=== PATIENT | female | born 1995 | race African-American/Black ===

== ENCOUNTER 2017-02-23 05:45 | Emergency (ER) | payer MEDICAID ==
[~2017-02-23] VITALS: Ht 175.3 cm; Wt 91.0 kg
[~2017-02-23 05:45] MED LIST: ALBUTEROL; NEXPLANON
[2017-02-23] MEDS ORDERED: SODIUM CHLORIDE 0.9% 1,000 ML IV ONE (09:00)
[2017-02-23 09:50] LABS: HEMATOCRIT. 36.9 % (36.0-48.0); HEMOGLOBIN. 12.2 g/dL (12.0-16.0); MEAN CORPUSCULAR HEMOGLOBIN 27.8 pg (28.0-32.0); MEAN CORPUSCULAR VOLUME 84.5 fL (81.0-99.0); MEAN PLATELET VOLUME 9.3 fl (7.4-10.4); PLATELET 205 x1000/uL (130-400); RED BLOOD CELL COUNT 4.37 mill/uL (4.2-5.4); RED CELL DISTRIBUTION WIDTH 14.6 % (11.6-14.6)
[2017-02-23 09:55] LABS: CHLORIDE 106 mEq/L (98-107)
[2017-02-23 09:57] LABS: INR 1.1; PROTHROMBIN TIME 11.4 sec
[2017-02-23 10:03] LABS: HCG SCREEN NEGATIVE
[2017-02-23 10:05] LABS: CARBON DIOXIDE 27 mEq/L (21-32)
[2017-02-23 10:11] LABS: CLARITY URINE CLOUDY (CLEAR); COLOR URINE YELLOW (YELLOW); GLUCOSE URINE NEGATIVE (NEGATIVE); KETONES URINE NEGATIVE (NEGATIVE); LEUKOCYTE ESTERASE URINE NEGATIVE (NEGATIVE); NITRITE URINE NEGATIVE (NEGATIVE); OCCULT BLOOD URINE NEGATIVE (NEGATIVE); PH URINE 7.5 (4.5-8.0); PROTEIN URINE NEGATIVE (NEGATIVE); SPECIFIC GRAVITY URINE 1.027 (1.005-1.030)
[2017-02-23 10:17] LABS: PLATELET ESTIMATE NORMAL
[2017-02-23 10:54] LABS: *AMPHETAMINES SCREEN URINE NEGATIVE (NEGATIVE); *BARBITURATES SCREEN URINE NEGATIVE (NEGATIVE); *BENZODIAZEPINES SCREEN URINE NEGATIVE (NEGATIVE); *COCAINE SCREEN URINE NEGATIVE (NEGATIVE); METHADONE URINE SCREEN NEGATIVE (NEGATIVE); OPIATES URINE SCREEN NEGATIVE (NEGATIVE); PHENCYCLIDINE URINE SCREEN NEGATIVE (NEGATIVE)
[2017-02-23 10:59] LABS: CANNABINOID URINE SCREEN PRESUMTIVE POSITIVE (NEGATIVE)
[2017-02-23] MEDS ORDERED: KETOROLAC 30MG/ML VIAL IV ONE (11:00)
[2017-02-23 11:04] VITALS: BP 121/62
== END 2017-02-23 11:37 | disposition home or self-care (01) ==
LOC: ER 05:53
DX: R10.30 Lower abdominal pain, unspecified (principal); R11.2 Nausea with vomiting, unspecified; J45.909 Unspecified asthma, uncomplicated; R30.0 Dysuria; Z20.89 Contact with and (suspected) exposure to other communicable diseases; Z88.0 Allergy status to penicillin
CPT/HCPCS: 36415; 80053; 80305; 81001; 83690; 84703; 85025; 85610; 87070; 87430; 96361; 96374; 99285; J1885; J7030; Z7610

== ENCOUNTER 2017-06-30 08:05 | Emergency (ER) | payer MEDICAID ==
[~2017-06-30] VITALS: Ht 177.8 cm; Wt 95.0 kg
[2017-06-30] MEDS ORDERED: ACETAMINOPHEN 325MG TABLET PO STA (08:45)
[2017-06-30] MEDS ORDERED: ONDANSETRON 4MG ODT PO STA (08:45)
[2017-06-30 09:17] LABS: BASOPHILS % 0.5 % (0.0-2.0); HEMATOCRIT. 40.6 % (36.0-48.0); HEMOGLOBIN. 13.5 g/dL (12.0-16.0); LYMPHOCYTES % 28.2 % (20.0-50.0); MEAN CORPUSCULAR HEMOGLOBIN 28.2 pg (28.0-32.0); MEAN CORPUSCULAR VOLUME 84.8 fL (81.0-99.0); MEAN PLATELET VOLUME 10.1 fl (7.4-10.4); MONOCYTES % 9.9 % (2.0-8.0); NEUTROPHILS % 59.4 % (40.0-76.0); PLATELET 214 x1000/uL (130-400); RED BLOOD CELL COUNT 4.79 mill/uL (4.2-5.4); RED CELL DISTRIBUTION WIDTH 13.7 % (11.6-14.6)
[2017-06-30 09:21] LABS: CHLORIDE 104 mEq/L (98-107); INR 1.1; PROTHROMBIN TIME 11.2 sec (9.4-11.6)
[2017-06-30 09:25] LABS: CARBON DIOXIDE 26 mEq/L (21-32)
[2017-06-30 10:54] LABS: CLARITY URINE CLEAR (CLEAR); COLOR URINE YELLOW (YELLOW); GLUCOSE URINE NEGATIVE (NEGATIVE); KETONES URINE TRACE (NEGATIVE); LEUKOCYTE ESTERASE URINE NEGATIVE (NEGATIVE); NITRITE URINE NEGATIVE (NEGATIVE); OCCULT BLOOD URINE NEGATIVE (NEGATIVE); PH URINE 5.5 (4.5-8.0); PROTEIN URINE NEGATIVE (NEGATIVE); SPECIFIC GRAVITY URINE 1.029 (1.005-1.030)
[2017-06-30 10:59] VITALS: BP 120/76
[2017-06-30 11:24] LABS: *BARBITURATES SCREEN URINE NEGATIVE (NEGATIVE); *BENZODIAZEPINES SCREEN URINE NEGATIVE (NEGATIVE); *COCAINE SCREEN URINE NEGATIVE (NEGATIVE); METHADONE URINE SCREEN NEGATIVE (NEGATIVE); OPIATES URINE SCREEN NEGATIVE (NEGATIVE); PHENCYCLIDINE URINE SCREEN NEGATIVE (NEGATIVE)
[2017-06-30 11:32] LABS: *AMPHETAMINES SCREEN URINE PRESUMTIVE POSITIVE (NEGATIVE); CANNABINOID URINE SCREEN PRESUMTIVE POSITIVE (NEGATIVE)
[2017-07-02 13:12] LABS: CHLAMYDIA TRACHOMATIS NAA Negative (Negative); NEISSERIA GONORRHOEAE NAA Negative (Negative)
== END 2017-06-30 11:59 | disposition home or self-care (01) ==
LOC: ER 08:09
DX: N76.0 Acute vaginitis (principal); J45.909 Unspecified asthma, uncomplicated; Z88.6 Allergy status to analgesic agent; Z88.0 Allergy status to penicillin; Z98.890 Other specified postprocedural states
CPT/HCPCS: 36415; 76830; 76856; 80053; 80305; 81003; 81025; 83690; 85025; 85610; 87210; 87491; 87591; 93005; 99285; Q0162; Z7610

== ENCOUNTER 2017-07-09 09:06 | Emergency (ER) | payer MEDICAID ==
[~2017-07-09] VITALS: Ht 180.3 cm; Wt 100.0 kg
[2017-07-09 09:57] VITALS: BP 123/75
[2017-07-09] MEDS: ACETAMINOPHEN 325MG TABLET PO ONE (11:18)
[2017-07-09 11:35] LABS: CLARITY URINE CLOUDY (CLEAR); COLOR URINE YELLOW (YELLOW); GLUCOSE URINE NEGATIVE (NEGATIVE); KETONES URINE NEGATIVE (NEGATIVE); LEUKOCYTE ESTERASE URINE TRACE (NEGATIVE); NITRITE URINE NEGATIVE (NEGATIVE); OCCULT BLOOD URINE 3+ (NEGATIVE); PH URINE 6.5 (4.5-8.0); PROTEIN URINE TRACE (NEGATIVE); SPECIFIC GRAVITY URINE 1.036 (1.005-1.030)
== END 2017-07-09 11:47 | disposition home or self-care (01) ==
LOC: ER 09:06
DX: R07.81 Pleurodynia (principal); M79.1 Myalgia; J45.909 Unspecified asthma, uncomplicated; Z76.0 Encounter for issue of repeat prescription; Z88.0 Allergy status to penicillin
CPT/HCPCS: 81001; 81025; 99283; 99406

== ENCOUNTER 2017-10-27 07:34 | Emergency (ER) | payer MEDICAID ==
[~2017-10-27] VITALS: Ht 177.8 cm; Wt 110.0 kg
[2017-10-27 07:36] VITALS: BP 141/87
== END 2017-10-27 09:06 | disposition left against medical advice (07) ==
LOC: ER 07:34
DX: Z53.21 Procedure and treatment not carried out due to patient leaving prior to being seen by health care provider (principal)

== ENCOUNTER 2017-11-02 18:19 | Emergency (ER) | payer MEDICAID ==
[~2017-11-02] VITALS: Ht 172.7 cm; Wt 55.0 kg
[2017-11-02] MEDS ORDERED: ONDANSETRON HCL 4MG/2ML VIAL IM ONE (19:45)
[2017-11-02 21:32] VITALS: BP 121/65
== END 2017-11-02 22:03 | disposition home or self-care (01) ==
LOC: ER 20:02
DX: H66.90 Otitis media, unspecified, unspecified ear (principal); J02.9 Acute pharyngitis, unspecified; J45.909 Unspecified asthma, uncomplicated; Z98.890 Other specified postprocedural states; Z88.6 Allergy status to analgesic agent
CPT/HCPCS: 96372; 99283; J2405; Z7610

== ENCOUNTER 2017-11-25 09:50 | Emergency (ER) | payer MEDICAID ==
[~2017-11-25] VITALS: Ht 177.8 cm; Wt 80.0 kg
[2017-11-25] MEDS ORDERED: BACITRACIN ZINC OINT UDPKT TOP ONE (10:45)
[2017-11-25] MEDS ORDERED: HYDROCODONE/ACETAMINOPHEN 5/325MG TABLET PO ONE (10:45)
[2017-11-25] MEDS ORDERED: ALBUTEROL (0.083%) 2.5MG/3ML NEB HHN ONE (10:45)
[2017-11-25] MEDS ORDERED: TETANUS, DIPHTHERIA, PERTUSSIS VAC/PF 0.5ML (>7YR OLD) IM ONE (10:45)
[2017-11-25] MEDS ORDERED: TRAMADOL 50MG TABLET PO ONE (12:30)
[2017-11-25] MEDS ORDERED: DIPHENHYDRAMINE 25MG CAPSULE PO ONE (14:15)
[2017-11-25 14:35] VITALS: BP 114/66
== END 2017-11-25 14:35 | disposition home or self-care (01) ==
LOC: ER 09:57
DX: S09.90XA Unspecified injury of head, initial encounter (principal); S40.021A Contusion of right upper arm, initial encounter; S40.022A Contusion of left upper arm, initial encounter; S80.11XA Contusion of right lower leg, initial encounter; J45.909 Unspecified asthma, uncomplicated; F41.9 Anxiety disorder, unspecified; S80.12XA Contusion of left lower leg, initial encounter; Y09 Assault by unspecified means; Z23 Encounter for immunization; Z88.6 Allergy status to analgesic agent
CPT/HCPCS: 70450; 73030; 73502; 73590; 73610; 81025; 90471; 90715; 94640; 99284; J7611; Z7610; Q0163

== ENCOUNTER 2018-02-08 02:39 | Emergency (ER) | payer MEDICAID ==
[~2018-02-08] VITALS: Ht 180.3 cm; Wt 105.0 kg
[2018-02-08 05:15] VITALS: BP 115/60
== END 2018-02-08 05:55 | disposition home or self-care (01) ==
LOC: ER 02:39
DX: S61.451A Open bite of right hand, initial encounter (principal); Y04.1XXA Assault by human bite, initial encounter; J45.909 Unspecified asthma, uncomplicated; Y93.89 Activity, other specified; Y92.89 Other specified places as the place of occurrence of the external cause
CPT/HCPCS: 29125; 81025; 99283

== ENCOUNTER 2018-06-21 08:59 | Emergency (ER) | payer MEDICAID ==
[~2018-06-21] VITALS: Ht 180.3 cm; Wt 104.0 kg
[2018-06-21] MEDS ORDERED: ACETAMINOPHEN 325MG TABLET PO PRN (09:45)
[2018-06-21] MEDS ORDERED: PREDNISONE 20MG TABLET PO ONE (10:00)
[2018-06-21] MEDS ORDERED: IPRATROPIUM/ALBUTEROL 0.5-3(2.5)MG/3ML NEB HHN ONE (10:00)
[2018-06-21 11:16] LABS: BASOPHILS % 0.6 % (0.0-2.0); EOSINOPHILS % 2.7 % (0.0-5.0); HEMATOCRIT. 36.3 % (36.0-48.0); HEMOGLOBIN. 12.1 g/dL (12.0-16.0); LYMPHOCYTES % 33.8 % (20.0-50.0); MEAN CORPUSCULAR HEMOGLOBIN 28.5 pg (28.0-32.0); MEAN CORPUSCULAR VOLUME 85.3 fL (81.0-99.0); MEAN PLATELET VOLUME 10.9 fl (7.4-10.4); MONOCYTES % 7.9 % (2.0-8.0); PLATELET 236 x1000/uL (130-400); RED BLOOD CELL COUNT 4.25 mill/uL (4.2-5.4); RED CELL DISTRIBUTION WIDTH 13.2 % (11.6-14.6)
[2018-06-21 11:24] LABS: CHLORIDE 104 mEq/L (98-107)
[2018-06-21 11:50] LABS: B-HCG QUANTITATIVE 55539 mIU/mL (<3)
[2018-06-21 12:39] VITALS: BP 124/71
[2018-06-21 12:50] LABS: CLARITY URINE CLEAR (CLEAR); COLOR URINE YELLOW (YELLOW); KETONES URINE NEGATIVE (NEGATIVE); LEUKOCYTE ESTERASE URINE NEGATIVE (NEGATIVE); NITRITE URINE NEGATIVE (NEGATIVE); OCCULT BLOOD URINE NEGATIVE (NEGATIVE); PH URINE 7.5 (4.5-8.0); PROTEIN URINE NEGATIVE (NEGATIVE); SPECIFIC GRAVITY URINE 1.015 (1.005-1.030)
== END 2018-06-21 12:41 | disposition home or self-care (01) ==
LOC: ER 08:59
DX: O20.0 Threatened abortion (principal); O23.31 Infections of other parts of urinary tract in pregnancy, first trimester; R06.2 Wheezing; J45.909 Unspecified asthma, uncomplicated; Z98.890 Other specified postprocedural states; Z88.6 Allergy status to analgesic agent; Z3A.10 10 weeks gestation of pregnancy
CPT/HCPCS: 36415; 76801; 76817; 80053; 81003; 81025; 84702; 85025; 86850; 86900; 86901; 93005; 99285; J7512; J7620

== ENCOUNTER 2019-03-18 22:05 | Emergency (ER) | payer MEDICAID ==
[~2019-03-18] VITALS: Ht 180.3 cm; Wt 113.0 kg
[2019-03-19] MEDS ORDERED: ACETAMINOPHEN 325MG TABLET PO PRN
[2019-03-19 01:27] LABS: BASOPHILS % 0.7 % (0.0-2.0); EOSINOPHILS % 2.3 % (0.0-5.0); HEMATOCRIT. 37.5 % (36.0-48.0); HEMOGLOBIN. 12.7 g/dL (12.0-16.0); LYMPHOCYTES % 44.2 % (20.0-50.0); MEAN CORPUSCULAR HEMOGLOBIN 28.3 pg (28.0-32.0); MEAN CORPUSCULAR VOLUME 83.9 fL (81.0-99.0); MEAN PLATELET VOLUME 9.6 fl (7.4-10.4); NEUTROPHILS % 44.8 % (40.0-76.0); PLATELET 241 x1000/uL (130-400); RED BLOOD CELL COUNT 4.47 mill/uL (4.2-5.4); RED CELL DISTRIBUTION WIDTH 14.8 % (11.6-14.6)
[2019-03-19 01:38] LABS: CHLORIDE 107 mEq/L (98-107)
[2019-03-19 02:02] LABS: B-HCG QUANTITATIVE 2732 mIU/mL (<3)
[2019-03-19 04:52] LABS: CLARITY URINE CLOUDY (CLEAR); COLOR URINE YELLOW (YELLOW); KETONES URINE TRACE (NEGATIVE); LEUKOCYTE ESTERASE URINE NEGATIVE (NEGATIVE); NITRITE URINE NEGATIVE (NEGATIVE); OCCULT BLOOD URINE NEGATIVE (NEGATIVE); PH URINE 5.5 (4.5-8.0); PROTEIN URINE NEGATIVE (NEGATIVE); SPECIFIC GRAVITY URINE 1.034 (1.005-1.030)
[2019-03-19 05:10] VITALS: BP 127/60
== END 2019-03-19 05:15 | disposition home or self-care (01) ==
LOC: ER 22:05
DX: O20.0 Threatened abortion (principal); O16.1 Unspecified maternal hypertension, first trimester; Z3A.01 Less than 8 weeks gestation of pregnancy; Z98.890 Other specified postprocedural states; Z88.6 Allergy status to analgesic agent
CPT/HCPCS: 36415; 76801; 84702; 86850; 86900; 99284